=== PATIENT | male | born 1995 | race Caucasian/White ===

== ENCOUNTER 2017-05-08 08:02 | Emergency (ER) | payer SELFPAY ==
[2017-05-08 08:12] VITALS: BP 138/81; PULSE 77; RESP 20; TEMP 97.5; O2SAT 99
--- NOTE | 2017-05-08 08:27 | C.PDOC ---
Time Seen by Provider: 05/08/17 08:03 Chief Complaint (Nursing): Abnormal Skin Integrity Past Medical History Vital Signs: Last Vital Signs Temp 97.5 F L 05/08/17 08:10 Pulse 77 05/08/17 08:10 Resp 20 05/08/17 08:10 BP 138/81 05/08/17 08:10 Pulse Ox 99 05/08/17 08:10 Family History: States: Diabetes, Hypertension - Social History Hx Tobacco Use: No Hx Alcohol Use: No Hx Substance Use: No - Immunization History Hx Tetanus Toxoid Vaccination: No Hx Influenza Vaccination: No Hx Pneumococcal Vaccination: No ED Course And Treatment O2 Sat by Pulse Oximetry: 99 Disposition - Disposition Disposition: HOME/ ROUTINE Disposition Time: 08:30 Condition: GOOD Prescriptions: Hydrocortisone 1% Cream [Cortizone 1% Cream] 30 applic TOP BID #1 tube Instructions: Insect Bite or Sting (ED), Contact Dermatitis (ED) - POA Present On Arrival: None - Clinical Impression Clinical Impression: Skin irritation, Contact dermatitis
--- NOTE | 2017-05-08 08:27 | C.PDOC ---
History Of Present Illness 21 y/o male presents to ED with complaints of rash to lower extremities and upper back for 3 days. 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 Patient reports there were bugs in the area and has been applying Alcohol and taking Benadryl with no improvement which prompted visit to ED. Patient denies fever, chills, nausea, vomiting, discharge or any other complaints at this time. Time Seen by Provider: 05/08/17 08:03 Chief Complaint (Nursing): Abnormal Skin Integrity History Per: Patient History/Exam Limitations: no limitations Onset/Duration Of Symptoms: Days Current Symptoms Are (Timing): Still Present Location Of Injury: Right: Back, Leg, Left: Back, Leg Quality Of Symptoms: Itching Past Medical History Reviewed: Historical Data, Nursing Documentation, Vital Signs Vital Signs: Last Vital Signs Temp 97.5 F L 05/08/17 08:10 Pulse 77 05/08/17 08:10 Resp 20 05/08/17 08:10 BP 138/81 05/08/17 08:10 Pulse Ox 99 05/08/17 08:31 - Medical History PMH: No Chronic Diseases Surgical History: No Surg Hx Family History: States: Diabetes, Hypertension - Social History Hx Tobacco Use: No Hx Alcohol Use: No Hx Substance Use: No - Immunization History Hx Tetanus Toxoid Vaccination: No Hx Influenza Vaccination: No Hx Pneumococcal Vaccination: No Review Of Systems Constitutional: Negative for: Fever, Chills Cardiovascular: Negative for: Chest Pain Respiratory: Negative for: Shortness of Breath Gastrointestinal: Negative for: Nausea, Vomiting Musculoskeletal: Negative for: Back Pain Skin: Positive for: Rash Physical Exam - Physical Exam Appears: Non-toxic, No Acute Distress Skin: Warm, Dry, Rash (Multiple circular areas with erythema to lower legs. No infection noted) Head: Normacephalic Oral Mucosa: Moist Tongue: Normal Appearing, No Swelling Lips: Normal Appearing, No Swelling Throat: Normal, No Erythema, No Exudate, No Drooling Neck: Normal ROM, Supple Chest: Symmetrical Cardiovascular: Rhythm Regular Respiratory: Normal Breath Sounds, No Rales, No Rhonchi, No Wheezing Extremity: Normal ROM, Capillary Refill (<2 seconds) Neurological/Psych: Oriented x3, Normal Speech, Normal Motor, Normal Sensation ED Course And Treatment O2 Sat by Pulse Oximetry: 99 (RA) Pulse Ox Interpretation: Normal Medical Decision Making Medical Decision Making: Plan: * Cortisone Cream Patient discharge and advised to continue Benadryl and apply Cortisone cream as instructed Disposition - Disposition Referrals: [facility] [Outside] [facility] [Outside] Disposition: HOME/ ROUTINE Disposition Time: 08:30 Condition: STABLE Additional Instructions: follow up with clinic or PMD Benadryl as needed for itch Prescriptions: Hydrocortisone 1% Cream [Cortizone 1% Cream] 30 applic TOP BID #1 tube Instructions: Contact Dermatitis (ED), Insect Bite or Sting (ED) Forms: [employer] ([employer]) - Clinical Impression Clinical Impression: Skin irritation, Contact dermatitis - PA / [employer] / Resident Statement MD/DO has reviewed & agrees with the documentation as recorded. - Scribe Statement The provider has reviewed the documentation as recorded by the Oumariblalo Hummel All medical record entries made by the Oumariblalo were at my direction and personally dictated by me. I have reviewed the chart and agree that the record accurately reflects my personal performance of the history, physical exam, medical decision making, and the department course for this patient. I have also personally directed, reviewed, and agree with the discharge instructions and disposition.
== END 2017-05-08 08:45 | disposition home or self-care (01) ==
LOC: C.ER 08:02
DX: L25.9 Unspecified contact dermatitis, unspecified cause (principal)